=== PATIENT | male | born 1965 | race Caucasian/White ===

== ENCOUNTER 2021-10-11 07:07 | Day surgery (SDC) | payer OTHER, SELFPAY ==
[2021-10-08 11:10] VITALS: BMI 26.4
[2021-10-11] MEDS: sodium chloride 0.9% 1,000 ML 30 ML IV (07:44)
[2021-10-11 07:45] VITALS: BP 136/78; PULSE 75; RESP 18; TEMP 36.4; O2SAT 96
--- NOTE | 2021-10-11 07:57 | W.PM.OPSFHP ---
Same Day Surgery H&P Indication for Procedure/HPI DATE OF PROCEDURE: October 11, 2021 CHIEF COMPLAINT/INDICATIONFOR SURGICAL PROCEDURE: Screening PREOP DIAGNOSIS: Screen PLANNED PROCEDURE: Operation Date: 10/11/21 09:15 Proposed Procedures p Colonoscopy 81139,Z12.11(Not Applicable) - Molina Pardo MD Medications/Allergies* Home Medications Medication Instructions Recorded Confirmed Type atenolol 25 mg tablet 25 mg PO DAILY 09/16/21 10/11/21 History atenolol 50 mg tablet 50 mg PO DAILY 09/16/21 10/11/21 History atomoxetine 40 mg capsule 40 mg PO BID 09/16/21 10/11/21 History (Strattera) atorvastatin 10 mg tablet 10 mg PO ONCE 09/16/21 10/11/21 History tramadol 50 mg tablet 50 mg PO Q4H PRN Pain 09/16/21 10/11/21 History Allergies/Adverse Reactions Allergy/AdvReac Type Severity Reaction Status Date / Time morphine Allergy Unknown Verified 10/11/21 07:44 Current Medications: Generic Name Dose Route Start Last Admin Trade Name Freq PRN Reason Stop Dose Admin Sodium Chloride 1,000 mls @ 30 mls/hr 10/11/21 07:15 10/11/21 07:44 Sodium Chloride 0.9% IV 10/12/21 07:14 30 mls/hr .Q24H MAURO Administration Pertinent History/Comorbid Conditions* Family History (Updated 09/16/21 @ 08:13 by Kay Vickers) Diabetes Grandmother Myocardial infarction Father Hypertension Mother Father Stroke Grandfather Social History Smoking and tobacco status: former smoker Alcohol intake: never Pertinent Exam Findings alert, oriented x 3, clear to auscultation bilaterally, regular rate & rhythm, operative site marked and procedure specific exam findings Recommendations Surgery/Procedure today Coding Level of Care Code Acute 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
--- NOTE | 2021-10-11 08:46 | ANES.PREANE2 ---
Pre-Anesthetic Assessment Height/Weight: Height 1.8 m Weight 86.183 kg Temp Pulse Resp BP Pulse Ox O2 Del Method 97.5 F L 75 18 136/78 96 10/11/21 07:45 10/11/21 07:45 10/11/21 07:45 10/11/21 07:45 10/11/21 07:45 10/11/21 07:45 Preop Diagnosis: Screen Operation Date: 10/11/21 09:15 Proposed Procedures p Colonoscopy 03298,Z12.11(Not Applicable) - Molina Pardo MD Familial anesthetic complications: None Was Beta Cosmo taken within 24 hours: Yes Was Clonidine taken within 24 hours: N/A Last intake: Intake Last Liquid Date 10/10/21 Last Liquid Time 21:00 Last Solid Date 10/09/21 Last Solid Time 21:00 Social No alcohol and No tobacco Exam alert, oriented x 3, clear to auscultation bilaterally and regular rate & rhythm Airway Submandibular: within normal limits Cervical ROM: within normal limits Mallampati: Class II Dentition: false CV/HEM Hypertension Metabolic Hyperlipidemia Anesthetic Plan ASA status: 2 Anesthesia: MAC Medications/Allergies Home Medications Medication Instructions Recorded Confirmed Last Taken Type atenolol 25 mg tablet 25 mg PO DAILY 09/16/21 10/11/21 10/10/21 History atenolol 50 mg tablet 50 mg PO DAILY 09/16/21 10/11/21 10/10/21 History atomoxetine 40 mg capsule 40 mg PO BID 09/16/21 10/11/21 10/10/21 History (Strattera) atorvastatin 10 mg tablet 10 mg PO ONCE 09/16/21 10/11/21 10/10/21 History tramadol 50 mg tablet 50 mg PO Q4H PRN Pain 09/16/21 10/11/21 10/10/21 History peg 3350-electrolytes 236 240 ml PO Q10M #4,000 mL 10/07/21 10/11/21 10/10/21 Rx gram-22.74 gram-6.74 gram-5.86 gram solution (Golytely) Allergies Allergy/AdvReac Type Severity Reaction Status Date / Time morphine Allergy Unknown Verified 10/11/21 07:44 Current Medications Generic Name Dose Route Start Last Admin Trade Name Freq PRN Reason Stop Dose Admin Sodium Chloride 1,000 mls @ 30 mls/hr 10/11/21 07:15 10/11/21 07:44 Sodium Chloride 0.9% IV 10/12/21 07:14 30 mls/hr .Q24H MAURO Administration PFSH Anesthesia Family History Mother Hypertension Father Hypertension Myocardial infarction Grandmother Diabetes Grandfather Stroke Social History Smoking and tobacco status: former smoker Alcohol intake: never Data Anesthesia Cardiac Studies: No Data to Display
[2021-10-11 10:41] VITALS: BP 143/89; PULSE 74; RESP 18; TEMP 36.6; O2SAT 96
[2021-10-11 11:00] VITALS: BP 137/63; PULSE 74; TEMP 36.2; O2SAT 95
--- NOTE | 2021-10-11 12:57 | ANE.PACU2 ---
Inpatient post-anesthesia follow up: Airway intact: Yes Vital signs: Temperature 97.1 F Pulse Rate 74 Respiratory Rate 18 Blood Pressure 137/63 Pulse Oximetry 95 Oxygen Delivery Me thod Room Air Oxygen Flow Rate Fraction of Inspir ed Oxygen Hydration adequate: Yes Nausea and vomiting: No Pain level: 1 Mental status: Baseline
== END 2021-10-11 11:13 | disposition home or self-care (01) ==
PROVIDERS: PCP Internal Medicine; Visit Provider Internal Medicine
PROC: 0DJD8ZZ Inspection of Lower Intestinal Tract, Via Natural or Artificial Opening Endoscopic (ICD-10-PCS; CPT 45378; principal; 2021-10-11 09:15)
DX: Z12.11 Encounter for screening for malignant neoplasm of colon (principal); Z87.891 Personal history of nicotine dependence; Z82.49 Family history of ischemic heart disease and other diseases of the circulatory system; Z83.3 Family history of diabetes mellitus; Z82.3 Family history of stroke; I10 Essential (primary) hypertension; E78.5 Hyperlipidemia, unspecified
CPT/HCPCS: 45378; J2704; J7030

== ENCOUNTER 2024-09-10 15:12 | Outpatient (CLI) | payer OTHER, SELFPAY ==
--- NOTE | 2024-09-10 15:23 | USCV_ITS ---
Sanju Wynne Age: 59 Gender: M : 1965 Exam Date: 09/10/2024 15:35 Ordering Phys: Molina Pardo MD Technologist: JOSH [place] [facility] [place]ication: Afib BP: 132 / 68 HR: 96 Rhythm: Sinus Technical Quality: Adequate MEASUREMENTS (Male / Female) Normal Values 2D ECHO LV Diastolic Diameter PLAX 5.6 cm 4.2 - 5.9 / 3.9 - 5.3 cm IVS Diastolic Thickness 1.2 cm 0.6 - 1.0 / 0.6 - 0.9 cm IVS Systolic Thickness 1.3 cm LVPW Diastolic Thickness 1.3 cm 0.6 - 1.0 / 0.6 - 0.9 cm LVPW Systolic Thickness 2.5 cm LVOT Diameter 2.0 cm LV Ejection Fraction 2D Teich 44.3 % LV Ejection Fraction MOD 4C 37.0 % LV Ejection Fraction MOD 2C 36.6 % LV Ejection Fraction 2C AL 38.4 % LA Diameter 4.4 cm RA Systolic Volume 4C AL 72.1 ml RA Systolic Volume 4C MOD 69.3 ml LA Sys Volume AL 76.5 cm cubed LA Sys Volume Index AL 39.9 cm cubed/m squared Aorta at Sinotubular Diameter 2.9 cm IVC Diameter 1.8 cm M-MODE LA Ao Ratio MM 1.6 AV Cusp Separation MM 1.6 cm DOPPLER AV Peak Velocity 86.0 cm/s LVOT Peak Velocity 72.0 cm/s AV Area Cont Eq vti 2.2 cm squared AV Area Cont Eq pk 2.6 cm squared MV Peak Velocity 105.0 cm/s MV Area PHT 5.7 cm squared Mitral E to A Ratio 3.6 TV Peak Velocity 248.0 cm/s TR Peak Velocity 302.0 cm/s TR Peak Gradient 36.5 mmHg TV Peak E Velocity 66.0 cm/s PV Peak Velocity 69.0 cm/s FINDINGS Left Ventricle Diffuse hypokinesis of the left ventricular ejection fraction of 36%. Mild cavity. Mild concentric left ventricular hypertrophy Right Ventricle The right ventricle is normal in size and function. Right Atrium Moderately increased right atrial size. Left Atrium Moderately increased left atrial size. Mitral Valve Mild mitral valve regurgitation. Aortic Valve Thickened aortic valve. Trace aortic valve regurgitation. Tricuspid Valve Mild tricuspid valve regurgitation. Pulmonic Valve Pulmonic valve not well visualized. Pericardium Normal pericardium without effusion. Aorta Normal ascending aorta dimension. IVC Normal IVC dimension with <50% respiratory change of the inferior vena cava. CONCLUSIONS Diffuse hypokinesis of the left ventricular ejection fraction of 36%. Mildly dilated LV cavity. Mild concentric left ventricular hypertrophy. Moderate biatrial enlargement. Mild mitral valve regurgitation. Thickened aortic valve. Trace aortic valve regurgitation. Mild tricuspid valve regurgitation. Estimated pulmonary artery peak systolic pressure 44 mmHg There is no pericardial effusion. There are no intracardiac masses. No similar previous studies are available for comparison Dr Alfonso Dixon MD FAC (Electronically Signed) Final Date: 12 September 2024 17:03 S
== END 2024-09-10 15:13 | disposition home or self-care (01) ==
LOC: RAD 15:14
PROVIDERS: PCP Internal Medicine; Visit Provider Internal Medicine
DX: I48.91 Unspecified atrial fibrillation (principal); R93.1 Abnormal findings on diagnostic imaging of heart and coronary circulation; I34.81 Nonrheumatic mitral (valve) annulus calcification; I35.8 Other nonrheumatic aortic valve disorders; I07.1 Rheumatic tricuspid insufficiency
CPT/HCPCS: 93306

== ENCOUNTER → 2024-09-30 12:59 | Outpatient (BNVA) | payer OTHER, SELFPAY | PROVIDERS: PCP Internal Medicine; Visit Provider Internal Medicine Cardiovascular Disease | DX: R07.9 Chest pain, unspecified (principal) | CPT/HCPCS: 93005 ==

== ENCOUNTER 2024-10-17 07:01 | Day surgery (SDC) | payer OTHER, SELFPAY ==
[2024-10-17 07:30] VITALS: BP 151/108; PULSE 103; RESP 17; TEMP 36.7; O2SAT 99
[2024-10-17 07:34] VITALS: BMI 23.1
--- NOTE | 2024-10-17 08:05 | ANES.PREANE2 ---
Pre-Anesthetic Assessment Height/Weight: Height 1.85 m Weight 79.379 kg Temp Pulse Resp BP Pulse Ox O2 Del Method 98.1 F 103 H 17 151/108 99 Room Air 10/17/24 07:30 10/17/24 07:30 10/17/24 07:30 10/17/24 07:30 10/17/24 07:30 10/17/24 07:30 Preop Diagnosis: Atrial fibrillation with RVR Operation Date: 10/17/24 08:30 Proposed Procedures p JAZZY(Not Applicable) - Marcus Meraz M.D s Cardioversion(Not Applicable) - Marcus Meraz M.D Familial anesthetic complications: none Was Beta Cosmo taken within 24 hours: Yes Was Clonidine taken within 24 hours: N/A Last intake: Intake Last Liquid Date 10/16/24 Last Liquid Time 21:00 Last Solid Date 10/16/24 Last Solid Time 21:00 Social No alcohol and No tobacco Exam alert, oriented x 3 and clear to auscultation bilaterally Airway Mallampati: Class II Dentition: false History/ROS No significant history except as noted Pulmonary None reported CV/HEM Atrial Fibrillation and Hypertension echo 09/10/24: CONCLUSIONS Diffuse hypokinesis of the left ventricular ejection fraction of 36%. Mildly dilated LV cavity. Mild concentric left ventricular hypertrophy. Moderate biatrial enlargement. Mild mitral valve regurgitation. Thickened aortic valve. Trace aortic valve regurgitation. Mild tricuspid valve regurgitation. Estimated pulmonary artery peak systolic pressure 44 mmHg There is no pericardial effusion. There are no intracardiac masses. No similar previous studies are available for comparison None reported Hepatic None reported GI None reported Metabolic Hyperlipidemia [facility] [place]/skel None reported Neuropsych None reported Anesthetic Plan ASA status: 3 Anesthesia: Anesthesia Evaluation and MAC Risk of > 500 ml blood loss (7ml/kg in children): Yes, adequate IV access and fluids planned Medications/Allergies Home Medications ?Medication ?Instructions ?Recorded ?Confirmed ?Last Taken ?Type apixaban 5 mg tablet (Eliquis) 5 mg PO BID #180 tabs 09/30/24 10/17/24 10/17/24 06:15 Rx atenolol 25 mg tablet 100 mg PO DAILY 09/30/24 10/17/24 10/16/24 22:00 History spironolactone 25 mg tablet 12.5 mg (1/2 x 25 mg) PO DAILY #45 09/30/24 10/17/24 10/17/24 06:15 Rx tabs Allergies Allergy/AdvReac Type Severity Reaction Status Date / Time morphine Allergy Unknown Verified 10/17/24 07:39 Current Medications Generic Name Dose Route Start Last Admin Trade Name Freq PRN Reason Stop Dose Admin Sodium Chloride 1,000 mls @ 15 mls/hr 10/17/24 07:35 10/17/24 08:20 Sodium Chloride 0.9% IV 10/18/24 07:34 15 mls/hr .Q24H PRN Administration COLONOSCOPY FLUIDS PFSH Anesthesia Medical History (Updated 09/30/24 @ 14:01 by Dov Lopez MD) Hypertension Family History Mother Hypertension Father Hypertension Myocardial infarction Grandmother Diabetes Grandfather Stroke Social History Smoking and tobacco/nicotine status: former use of tobacco/nicotine Alcohol intake: never Substance/Drug Use: never Data Anesthesia Cardiac Studies: Echocardiogram 09/10/24
--- NOTE | 2024-10-17 08:06 | W.PM.OPSUD ---
Surgery/Procedure H&P Update DATE OF PROCEDURE: October 17, 2024 DATE H&P PERFORMED: 09/30/24 H&P UPDATE INFORMATION: I have reviewed H&P completed within last 30 days, I have examined patient prior to procedure and No changes to prior documentation PREOP DIAGNOSIS: Atrial fibrillation with RVR PRIMARY INDICATION FOR PROCEDURE: Atrial fibrillation with RVR PLANNED PROCEDURE: Operation Date: 10/17/24 08:30 Proposed Procedures p JAZZY(Not Applicable) - Marcus Meraz M.D s Cardioversion(Not Applicable) - Marcus Meraz M.D Anesthesia team available for the procedure
--- NOTE | 2024-10-17 08:15 | ECG_ITS ---
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 Measurements Intervals [place] Rate: 99 P: 0 MO: 0 QRS: 19 QRSD: 86 T: 79 QT: 365 QTc: 470 Interpretive Statements ATRIAL FIBRILLATION NONSPECIFIC T-WAVE ABNORMALITY ABNORMAL RHYTHM ECG Compared to ECG 09/30/2024 13:08:27 Possible ischemia no longer present T-wave abnormality still present Electronically Signed On 10-19-2024 09:42:20 CDT by Marcus Meraz M.D. [email or web address]
[2024-10-17 08:30] VITALS: BP 100/77; PULSE 116; RESP 22; O2SAT 93
--- NOTE | 2024-10-17 08:33 | P.PCN_ITS ---
Procedure Note: Date of procedure: 10/17/24 Pre-procedure diagnosis: Atrial fibrillation with RVR Post-procedure diagnosis: other (Normal sinus rhythm) Procedure: After anesthesia team sedated patient, we proceeded with JAZZY. Left atrial ap pendage thrombus was ruled out. We cardioverted patient with synchronized shock x 1 at 200J. Patient successfully converted to sinus rhythm Continue eliquis and atenolol. Outpatient cardiology follow up in 2-4 weeks Performing Provider: Marcus Meraz Complications: None Condition: stable Disposition: same day Coding Level of Care Code Acute Code for [facility]
--- NOTE | 2024-10-17 08:39 | ECG_ITS ---
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 Measurements Intervals [place] Rate: 60 P: 81 CA: 154 QRS: -9 QRSD: 88 T: 64 QT: 439 QTc: 439 Interpretive Statements SINUS RHYTHM POSSIBLE LEFT ATRIAL ENLARGEMENT [-0.1mV P-WAVE IN V1/V2] POSSIBLE LEFT VENTRICULAR HYPERTROPHY [VOLTAGE CRITERIA PLUS LAE OR QRS WIDENING] NONSPECIFIC T-WAVE ABNORMALITY Compared to ECG 10/17/2024 08:15:05 Atrial fibrillation no longer present T-wave abnormality still present Electronically Signed On 10-19-2024 09:42:15 CDT by Marcus Meraz M.D. [email or web address]
[2024-10-17 08:45] VITALS: BP 114/76; PULSE 61; RESP 22; O2SAT 94
[2024-10-17 09:00] VITALS: BP 121/73; PULSE 63; RESP 21; O2SAT 95
== END 2024-10-17 09:47 | disposition home or self-care (01) ==
PROVIDERS: PCP Internal Medicine; Visit Provider Internal Medicine
PROC: (CPT 93312; principal; 2024-10-17 08:30)
PROC: 5A2204Z Restoration of Cardiac Rhythm, Single (ICD-10-PCS; 2024-10-17 08:30)
DX: I48.19 Other persistent atrial fibrillation (principal); Z87.891 Personal history of nicotine dependence; E78.5 Hyperlipidemia, unspecified; I11.0 Hypertensive heart disease with heart failure; I50.22 Chronic systolic (congestive) heart failure
CPT/HCPCS: 92960; 93005; 93312; 93320; 93325; J2704; J3490; J7030; J9999

== ENCOUNTER → 2024-11-07 14:21 | Outpatient (BNVA) | payer OTHER, SELFPAY | PROVIDERS: PCP Internal Medicine; Visit Provider Internal Medicine Cardiovascular Disease | DX: I48.91 Unspecified atrial fibrillation (principal) | CPT/HCPCS: 93005 ==

== ENCOUNTER 2024-11-08 10:51 | Outpatient (CLI) | payer OTHER, SELFPAY ==
[2024-11-08 12:07] LABS: Hematocrit 46.3 % (37-53); Hemoglobin 15.30 g/dL (11.27-16.99); Mean Corpuscular HGB Conc 33.0 g/dL (30-55); Mean Corpuscular Hemoglobin 28.7 pg (27-33); Mean Corpuscular Volume 86.7 fl (82-101); Nucleated Red Blood Cells % 0 %; Platelet Count 177 10^3/cmm (157-399); Red Blood Count 5.34 10^6/uL (3.85-5.65); White Blood Count 8.04 10^3/uL (3.29-11.43)
[2024-11-08 12:18] LABS: INR 1.00 (0.83-1.21)
[2024-11-08 12:21] LABS: Anion Gap 10.8 (5-19); Blood Urea Nitrogen 18 mg/dL (8-23); Calcium 9.0 mg/dL (8.5-10.5); Carbon Dioxide 28 mmol/L (22-29); Chloride 104 mmol/L (98-107); Glucose 100 mg/dL (65-115); Osmolality Calculated 288 mOsm/kg (285-295); Potassium 4.8 mmol/L (3.5-5.1); Sodium 138 mmol/L (136-145)
== END 2024-11-08 10:52 | disposition home or self-care (01) ==
LOC: LAB 10:51
PROVIDERS: PCP Internal Medicine; Visit Provider Internal Medicine Cardiovascular Disease
DX: I50.22 Chronic systolic (congestive) heart failure (principal); I10 Essential (primary) hypertension; I48.19 Other persistent atrial fibrillation; R58 Hemorrhage, not elsewhere classified
CPT/HCPCS: 36415; 80048; 85025; 85610

== ENCOUNTER 2024-11-21 07:49 | Outpatient (CLI) | payer OTHER, SELFPAY ==
[2024-11-21] VITALS (14 sets, daily range): BP systolic 112–174; BP diastolic 77–113; PULSE 77–95; RESP 15–18; TEMP 36.6; O2SAT 92–98; BMI 21.6
--- NOTE | 2024-11-21 08:00 | XACV_ITS ---
Exam Room: 2 Ht: 417 cm Wt: 33 kg BSA: 1.74 m2 Gender: Male : 1965 Any Known Allergies: Morphine Exam Priority: Routine Procedure(s): Procedure Description: Diagnostic procedure Procedure Description: Left Heart Catheterization Procedure Description: Left ventriculography Procedure Description: Coronary Angiography Diagnostic Cath Status: Elective Diagnostic Findings * No significant disease noted in the Left Main, Left Anterior Descending, Right, or Circumflex coronary arteries. * Coronary angiography shows right dominance. Conclusions 1. No significant disease noted in the Left Main, Left Anterior Descending, Right, or Circumflex coronary arteries. 2. Non-ischemic cardiomyopathy. 3. Mild left ventricular systolic dysfunction. Ejection fraction of 40%. Recommendations * Aggressive risk factor modification and guideline directed heart failure therapy. * Outpatient cardiology follow up in 2 weeks. Interventional RX Recommendation: medical therapy and/or counseling Diagnostic RX Recommendation: medical therapy and/or counseling Anticoagulation: Heparin Ventriculography Ejection Fraction: 40.0 % Pressures Phase:Rest AO : 97 / 82 ( 88 ) @ 11:29:00 AM 124 / 77 ( 96 ) @ 11:35:00 AM 128 / 78 ( 97 ) @ 11:35:00 AM LV : 130 / -5 / 0 @ 11:33:00 AM 134 / -6 / -1 @ 11:33:00 AM 125 / -5 / -1 @ 11:34:00 AM 127 / -8 / 2 @ 11:34:00 AM 131 / -7 / 9 @ 11:35:00 AM Valves Phase:DefaultPhase AV : 0.0 @ 10:42:04 AM AV Mean Gradient: 0.0 @ 10:42:04 AM Clinical Evaluation EBL: 5mL-10mL Procedural Details Pre-Procedure Time Out. Identified patient by full name and date of as verbalized by the patient/guarantor. Does the consent match the physician's order: Yes. Accurate & Complete Informed Consent: Yes. Inpatient/Outpatient History & Physical on Chart: Yes. If H&P is completed, is and addenduem needed: No; If yes, is the addendum complete: N/A. Visualize and Verify Site with Patient/Guarantor: N/A. Relevant Radiology Images available: Yes. Pre-op teaching completed and patient verbalized understanding. The risks, benefits, and alternatives of sedation and/or procedure were discussed by physician. The patient agrees to continue. Procedure started. [facility] Clinical Fraility Score: 3: Managing Well. Compensation Administrator Indications: Suspected CAD. Chest Pain Symptom Assessment: Typical Angina Symptoms. Current diagnosis: Chest Pain. PERRLA. Strong, equal hand director of collections bilaterally. Lungs clear x 5 lobes. IV Site on Arrival: 20 gauge in the right anticubital. IV Fluids: 0.9% NaCl at KVO. 0 mL infused prior to labor relations supervisor. Oxygen started at 2liters/min via nasal canula. Pre Procedural Pulses: right dorsalis pedis was 1+. Pre Procedural Pulses: left dorsalis pedis was 2+. Pre Procedural Pulses: right posterior tibial was 3+. Pre Procedural Pulses: left posterior tibial was 2+. Pre Procedural Pulses: bilateral radial was 2+. right groin was prepped with chloroprep then draped in the usual sterile fashion. right radial was prepped with chloroprep then draped in the usual sterile fashion. Baseline sample Acquired. HR: 0 BPM. Physician arrived. Current Diagnosis : Chest Pain. Physician scrubbed in. Immediate Pre-Procedure Time Out. Correct Patient: Yes; Correct Procedure: Yes; Correct Site: Yes; Correct Patient Position: Yes; Correct Supplies: Yes; Dried Flammable Prep: Yes; Blood Products Available: N/A;. Lidocaine 1% infiltrated to the right radial. Arterial access obtained. Wire unable to advance. Wire and needle removed. Ultrasound being used to obtain arterial access. Arterial access obtained. Lidocaine 1% infiltrated to the right radial. A 5 tajik TIG catheter in over wire. Multiple views taken of left coronary artery. Catheter redirected to the RCA. Multiple views taken of right coronary artery. Catheter removed over the exchange wire. A 5 tajik Angled Pig catheter in over wire. EDP Sample taken: LV 130/-6,-1; HR: 112 BPM; SpO2: 96%. EDP Sample taken: LV 134/-7,-2; HR: 101 BPM; SpO2: 96%. EDP Sample taken: LV 125/-6,-2; HR: 105 BPM; SpO2: 95%. LV gram performed in SMITH @ 10 mL/second for a total of 30 mL. EDP Sample taken: LV 127/-9,2; HR: 94 BPM; SpO2: 96%. Pullback taken: LV 131/-8,9; AO 124/77(96); Mean: 0mmHg, Peak to Peak: 0mmHg, SEP: 7sec/min; HR: 100 BPM; SpO2: 96%. Catheter removed over the exchange wire. Vital chart was stopped. A TR Band was successful obtaining hemostatsis at the Right Radial artery insertion site. Post Procedure: Pulses reassessed and unchanged. PERRLA. Strong, equal hand director of collections bilaterally. No VTE prophylaxis required. Medication's Wasted: Lidocaine 1% = 18 mL. Medication's Wasted: Nitro = 49.8 mcg. Medication's Wasted: Other = Fentanyl 25 mcg. Medication's Wasted: Heparin = 1000 units. Total IV fluids: 30 mL. Post-op diagnosis: Non-obstructive CAD. Complications: None. Estimated blood loss: 5mL-10mL. Responsiveness - Normal response to verbal stimuli; alert and oriented, PERRLA. Airway - Unaffected, no intervention required; spontaneous ventilation. Circulation: W/N/L, pulses unchanged. Nausea/Vomiting: No. Procedure completed. Patient transferred by wheelchair to CPRU. Access Site Site: Right Radial artery Sheath Size: 6 Fr Hemostasis Method: TR Band Hemostasis Success: Successful Procedure Medications Start: 10:17 AM Stop: 10:17 AM Medication: Versed Amount: 1 mg Route: I.V. Start: 10:17 AM Stop: 10:17 AM Medication: Fentanyl Amount: 50 mcg Route: I.V. Start: 10:19 AM Stop: 10: AM Medication: Versed Amount: 1 mg Route: I.V. Start: 10: AM Stop: 10: AM Medication: Versed Amount: 1 mg Route: I.V. Start: 10:25 AM Stop: 10: AM Medication: Fentanyl Amount: 25 mcg Route: I.V. Start: 10: AM Stop: 10: AM Medication: Heparin Amount: 5000 units Route: I.V. Start: 10: AM Stop: 10: AM Medication: Nitrogylcerin Amount: 200 mcg Route: I.A. Start: 10:29 AM Stop: 10:29 AM Medication: Versed Amount: 1 mg Route: I.V. I, the attending physician, have reviewed and verified all procedure medications. Yes, all medications given per verbal order History/Risk Factors Hypertension: Yes Dyslipidemia: Yes Peripheral Arterial Disease (PAD): No Myocardial Infarction ([place]): No Obesity: No Renal Disease: No Tobacco Use: Former Prior Interventions PCI: No CABG: No Valve Surgery: No Report Signatures Finalized by Marcus Meraz MD on 11/30/2024 10:48 PM
--- NOTE | 2024-11-21 10:16 | W.PM.OPSUD ---
Surgery/Procedure H&P Update DATE OF PROCEDURE: November 21, 2024 DATE H&P PERFORMED: 11/07/24 H&P UPDATE INFORMATION: I have reviewed H&P completed within last 30 days, I have examined patient prior to procedure and No changes to prior documentation PREOP DIAGNOSIS: LV dysfunction PRIMARY INDICATION FOR PROCEDURE: LV dysfunction PLANNED PROCEDURE: Operation Date: 11/21/24 09:05 Proposed Procedures p Cardiac Catheterization - [facility] w/wo LV & Coros(Left) - Marcus Meraz M.D Possible percutaneous coronary intervention PATIENT REASSESSED PRIOR TO SEDATION, WITH NO CHANGE NOTED: Yes PHYSICAL EXAM: alert, oriented x 3, clear to auscultation bilaterally and regular rate & rhythm AIRWAY EVAL/ANESTHESIA PLAN: normal airway, ASA III, Local Anesthesia, Risks, benefits & alternatives of sedation and/or procedure discussed and Patient agrees to continue as planned ADDITIONAL INFORMATION: Moderate sedation
--- NOTE | 2024-11-21 10:40 | PM.PROC ---
Procedure Note: Date of procedure: 11/21/24 Pre-procedure diagnosis: LV dysfunction Post-procedure diagnosis: other (Patent coronary arteries) Procedure: Patent coronary arteries. Non ischemic cardiomyopathy. Will need atrial fibrillation control. Outpatient cardiology follow up Coding Level of Care Code Acute Code for [facility] Fwvel[facility]
--- NOTE | 2024-11-21 13:29 | PC.NURSE ---
TR Removal Note Started releasing air from TR band at 1200. 1-3ml released every 5-15minutes until TR band deflated. TR band deflated at 1300. Right radial site asymptomatic, no signs of bleeding or hematoma. Radial pulse palpable. Large bandaid applied to site. Pt and spouse educated on reportable signs and symptoms and activity restrictions. Verbalized understanding of instructions.
== END 2024-11-21 14:15 | disposition home or self-care (01) ==
PROVIDERS: PCP Internal Medicine; Visit Provider Internal Medicine
DX: I42.8 Other cardiomyopathies (principal); E78.5 Hyperlipidemia, unspecified; Z87.891 Personal history of nicotine dependence; I50.22 Chronic systolic (congestive) heart failure; I48.19 Other persistent atrial fibrillation; Z82.49 Family history of ischemic heart disease and other diseases of the circulatory system; I11.0 Hypertensive heart disease with heart failure
CPT/HCPCS: 36415; 93458; 99152; 99153; C1769; C1887; C1894; J1644; J2250; J3010; J3490; J7030; J9999; Q0163; Q9967